=== PATIENT | female | born 1985 | race Caucasian/White ===

== ENCOUNTER 2020-06-22 07:35 | Inpatient (IN) | payer MEDICAID ==
[~2020-06-22] VITALS: Ht 165.1 cm; Wt 136.1 kg
[2020-06-22] MEDS ORDERED: LACTATED RINGERS 1,000 ML IV SCH (09:33)
[2020-06-22] MEDS ORDERED: DEXT 5%/LR + PITOCIN 20UNITS/L 1,000 ML IV SCH (09:33)
[2020-06-22] MEDS ORDERED: CARBOPROST TROMETHAMINE 250 MCG/ML AMPUL IM PRN (09:45)
[2020-06-22] MEDS ORDERED: LIDOCAINE HCL 1% 20ML VIAL (Pyxis) INJ INFIL SCH (09:45)
[2020-06-22] MEDS ORDERED: NALOXONE HCL 0.4 MG/ML 1ML VIAL IM PRN (09:45)
[2020-06-22] MEDS ORDERED: BUTORPHANOL TARTRATE 2 MG/ML VIAL IV PRN (09:45)
[2020-06-22] MEDS ORDERED: MISOPROSTOL 100MCG TABLET VG SCH (09:45)
[2020-06-22 10:43] LABS: BASOPHILS % 0.5 % (0.0-2.0); EOSINOPHILS % 0.6 % (0.0-5.0); HEMATOCRIT. 32.4 % (36.0-48.0); HEMOGLOBIN. 10.8 g/dL (12.0-16.0); LYMPHOCYTES % 15.8 % (20.0-50.0); MEAN CORPUSCULAR HEMOGLOBIN 28.5 pg (28.0-32.0); MEAN CORPUSCULAR VOLUME 85.4 fL (81.0-99.0); MEAN PLATELET VOLUME 8.4 fl (7.4-10.4); MONOCYTES % 5.9 % (2.0-8.0); NEUTROPHILS % 77.2 % (40.0-76.0); PLATELET 351 x1000/uL (130-400); RED BLOOD CELL COUNT 3.79 mill/uL (4.2-5.4); RED CELL DISTRIBUTION WIDTH 15.3 % (11.6-14.6)
[2020-06-22 10:52] LABS: INR 0.9; PARTIAL THROMBOPLASTIN TIME 27.9 sec (23.4-31.0); PROTHROMBIN TIME 9.8 sec (9.6-11.0)
[2020-06-22] MEDS ORDERED: ROPIVACAINE HCL/PF EPIDURAL 200 ML EPI SCH (11:30)
[2020-06-22 11:34] LABS: HEPATITIS B SURFACE ANTIGEN NEGATIVE
[2020-06-22] MEDS ORDERED: IBUPROFEN 400MG TABLET PO PRN (18:00)
[2020-06-22] MEDS ORDERED: OXYCODONE HCL/ACETAMINOPHEN 5/325MG TABLET PO PRN (18:00)
[2020-06-22] MEDS ORDERED: LANOLIN OINT 7GM TUBE TOP PRN (18:00)
[2020-06-22] MEDS ORDERED: HEMORRHOIDAL SUPP PR PRN (18:00)
[2020-06-22] MEDS ORDERED: GLYCERIN/WITCH HAZEL LEAF MEDICATED PAD TOP PRN (18:00)
[2020-06-22] MEDS ORDERED: BISACODYL 10MG SUPP PR PRN (18:00)
[2020-06-22] MEDS ORDERED: DIPHENHYDRAMINE 25MG CAPSULE PO PRN (18:00)
[2020-06-22] MEDS: DEXT 5%/LR + PITOCIN 20UNITS/L 1,000 ML IV SCH (18:32)
[2020-06-22] MEDS: IBUPROFEN 800MG TABLET PO PRN ×2 (20:14→22:27)
[2020-06-22 20:40] VITALS: BP 103/55
[2020-06-22] MEDS ORDERED: MAGNESIUM/ALUMINUM HYDROXIDE/SIMETHICONE 30ML UDC PO SCH (21:00)
[2020-06-22] MEDS ORDERED: SIMETHICONE 80MG TABLET CHEW PO SCH (21:00)
[2020-06-22] MEDS ORDERED: DOCUSATE SODIUM 100MG CAPSULE PO SCH (21:00)
[2020-06-22 21:40] VITALS: BP 106/60
[2020-06-23 00:01] VITALS: BP 126/56
[2020-06-23] MEDS: DEXT 5%/LR + PITOCIN 20UNITS/L 1,000 ML IV SCH (02:28)
[2020-06-23 04:00] VITALS: BP 126/62
[2020-06-23 04:14] LABS: CLARITY URINE CLEAR (CLEAR); COLOR URINE RED (YELLOW); KETONES URINE NEGATIVE (NEGATIVE); LEUKOCYTE ESTERASE URINE 1+ (NEGATIVE); NITRITE URINE NEGATIVE (NEGATIVE); OCCULT BLOOD URINE 3+ (NEGATIVE); PH URINE 7.5 (4.5-8.0); PROTEIN URINE 2+ (NEGATIVE); SPECIFIC GRAVITY URINE 1.012 (1.005-1.030)
[2020-06-23 04:46] LABS: *AMPHETAMINES SCREEN URINE NEGATIVE (NEGATIVE); *BARBITURATES SCREEN URINE NEGATIVE (NEGATIVE); *BENZODIAZEPINES SCREEN URINE NEGATIVE (NEGATIVE); *COCAINE SCREEN URINE NEGATIVE (NEGATIVE)
[2020-06-23 04:47] LABS: CANNABINOID URINE SCREEN NEGATIVE (NEGATIVE); METHADONE URINE SCREEN NEGATIVE (NEGATIVE); OPIATES URINE SCREEN NEGATIVE (NEGATIVE); PHENCYCLIDINE URINE SCREEN NEGATIVE (NEGATIVE)
[2020-06-23 07:27] LABS: BASOPHILS % 0.3 % (0.0-2.0); EOSINOPHILS % 0.4 % (0.0-5.0); HEMATOCRIT. 31.5 % (36.0-48.0); HEMOGLOBIN. 10.2 g/dL (12.0-16.0); LYMPHOCYTES % 20.5 % (20.0-50.0); MEAN CORPUSCULAR HEMOGLOBIN 27.6 pg (28.0-32.0); MEAN CORPUSCULAR VOLUME 85.4 fL (81.0-99.0); MEAN PLATELET VOLUME 8.3 fl (7.4-10.4); MONOCYTES % 2.3 % (2.0-8.0); NEUTROPHILS % 76.5 % (40.0-76.0); PLATELET 288 x1000/uL (130-400); RED BLOOD CELL COUNT 3.69 mill/uL (4.2-5.4); RED CELL DISTRIBUTION WIDTH 15.6 % (11.6-14.6)
[2020-06-23] MEDS ORDERED: FERROUS SULFATE 325MG TABLET PO SCH (07:30)
[2020-06-23] MEDS ORDERED: PRENATAL VIT/FE FUMARATE/FA TABLET PO SCH (09:00)
[2020-06-23] MEDS ORDERED: TETANUS, DIPHTHERIA, PERTUSSIS VAC/PF 0.5ML (>7YR OLD) IM ONE (09:00)
== END 2020-06-23 19:40 | disposition home or self-care (01) | DRG 560 ==
LOC: OBSVTOIN 07:35 → 8 EST LDRP 07:35 → 8EST 20:25
PROVIDERS: ADMIT Specialist; ATTEND Specialist
PROC: 10E0XZZ Delivery of Products of Conception, External Approach (ICD-10-PCS; principal; 2020-06-22)
PROC: 3E0R3BZ Introduction of Anesthetic Agent into Spinal Canal, Percutaneous Approach (ICD-10-PCS; 2020-06-22)
PROC: 00HU33Z Insertion of Infusion Device into Spinal Canal, Percutaneous Approach (ICD-10-PCS; 2020-06-22)
DX: O99.62 Diseases of the digestive system complicating childbirth (principal); K76.0 Fatty (change of) liver, not elsewhere classified; K80.20 Calculus of gallbladder without cholecystitis without obstruction; O10.92 Unspecified pre-existing hypertension complicating childbirth; O99.214 Obesity complicating childbirth; O99.02 Anemia complicating childbirth; O26.62 Liver and biliary tract disorders in childbirth; Z37.0 Single live birth; Z3A.40 40 weeks gestation of pregnancy; Z20.828 Contact with and (suspected) exposure to other viral communicable diseases
CPT/HCPCS: 36415; 80305; 81003; 85025; 86592; 86703; 86762; 86850; 86900; 87340; 90715; 99281; J2590; J2795; J7120; U0003-CS